=== PATIENT | male | born 1980 | race Caucasian/White ===

== ENCOUNTER 2018-08-06 09:21 | Outpatient (CLI) | payer MEDICAID, SELFPAY ==
--- NOTE | 2018-08-06 15:18 | DI.RAD_ITS ---
SYMPTOM/DIAGNOSIS: M54.12, SIGNS OF C 7 RADICULOPATHY CERVICAL SPINE: There is some straightening of the normal cervical lordosis. There is slight narrowing of the C 5-6 disc space. The left neural foramina are suboptimally profiled. No definite neural foraminal narrowing is seen. IMPRESSION: Mild degenerative changes.
== END 2018-08-06 09:41 ==
PROVIDERS: PCP Family Medicine; Visit Provider Family Medicine
DX: M54.12 Radiculopathy, cervical region (principal); M50.322 Other cervical disc degeneration at C5-C6 level
CPT/HCPCS: 72050

== ENCOUNTER 2018-11-16 13:38 | Emergency (ER) | payer MEDICAID, SELFPAY ==
[2018-11-16 13:44] VITALS: BP 149/94; PULSE 100; RESP 16; TEMP 36.6; O2SAT 100
--- NOTE | 2018-11-16 13:50 | ED.GENADUL_ITS ---
Discharge Plan Disposition Patient Disposition: HOME Condition: Improving Discharge Details Chief Complaint: Chest Pain Clinical Impression: Chest pain, atypical Primary Care Provider: Ivan Benedict ED Provider: Danny Delatorre Home Meds and New Rx's Prescriptions: No Action No Known Home Meds RF: 0 Discharge Instructions Instructions: Chest Pain (ED) Additional Instructions: Please follow instructions given to you by stress test/diagnostic department. Please follow-up with your primary care provider in the next week and return immediately to the emergency department for any new or worsening symptoms, any further concerns. Referrals: Ivan Benedict DO [Primary Care Provider] - 1 week (for reassessment) Discharge Data Discharge Date/Time-TO BE ENTERED AT DEPARTURE: 11/16/18 17:56 Medical Decision Making Patient presenting to the emergency department for chief complaint of chest pain. Patient states that this occurred approximately 25 minutes prior to arrival while he was loading some trash in the back of the vehicle. Patient states it was a substernal pressure with some sensation of irregular beats and some bilateral arm numbness and tingling. Patient states that the pain and discomfort lasted about 5 minutes and then resolved with some tingling lasting about 15 minutes in the upper extremities and then gone. Patient denies any smoking, significant family history for early cardiac does state that mother has had some palpitations in the past the patient is unsure of actual diagnosis. Patient is otherwise healthy. Physical exam is unremarkable and nondiagnostic.Due to some EKG findings in aVR with downsloping ST segment a right-sided EKG was performed. Right-sided EKG does show some signs of ST elevation in V5 V6. Due to this cardiology was paged at 1455 Labs were reviewed and are nondiagnostic along with normal chest x-ray. Spoke with Dr. Hadley who states that EKG pattern is not indicative of STEMI. Initial troponin is negative. Patient reassessed and states that he is pain- free. Given onset of less than 30 minutes prior to arrival to the emergency department plan on doing second troponin which patient is agreeable to Repeat EKG was reviewed with offender job retention specialist due to some interval changes whom stated normal EKG but recommended outpatient stress testing if second troponin remains negative. Second troponin was reviewed and is negative. Patient remains asymptomatic. Patient discharged with diagnosis of atypical chest pain, given referral to follow-up with primary care provider for reassessment preferably next week, and outpatient stress testing ECG Data Attestation: I personally reviewed and interpreted this ECG (s) as follows: Interpretation: EKG shows sinus tachycardia with rate of 105, some elevation/downsloping of aVR otherwise nondiagnostic EKG. Given aVR findings right-sided EKG was performed with a rate of 98, sinus rhythm, nonspecific ST elevation of V5 and V6 along with continued downsloping of aVR noted on right- sided EKG. Both EKGs were reviewed with Dr. Nuñze attending ER physician immediately after being performed. 1643-repeat EKG shows sinus rhythm with rate of 78 and continued RVR downsloping and some peaked T waves. Reviewed this with attending physician Dr. Nuñez along with offender job retention specialist HPI General Mode of arrival: ambulatory . Date/Time Provider Initiated Documentation: 11/16/18 13:44 . Limitations to Documentation: no limitations . Information obtained by: patient . History of Present Illness 38 year old M presents to the emergency department with the chief complaint of chest pain, Quality is described as other (denies current pain), and is localized to the chest. Patient started experiencing this minute(s) (25) and it has been now resolved. No relieving factors improve symptom(s), No exacerbating factors reported . Patient did receive the following treatments prior to arrival, none Related Data Home Medications Medication Instructions Recorded Confirmed Unknown [No Known Home Meds] 11/16/18 11/16/18 Allergies Allergy/AdvReac Type Severity Reaction Status Date / Time No Known Drug Allergies Allergy Verified 11/16/18 13:47 General Stated Complaint: Chest Pain MIRA: 3 Review of Systems Constitutional Denies chills, Denies fever(s) and Denies malaise Cardiovascular Reports as per HPI, Reports chest pain, Reports chest pain with activity, Denies syncope, Reports irregular heart rhythm, Reports palpitations and Denies dyspnea Respiratory Denies cough, Denies hemoptysis and Denies dyspnea Gastrointestinal Denies abdominal pain, Denies nausea and Denies vomiting Musculoskeletal Reports tingling (bilateral arms) Neurologic Denies syncope and Reports tingling (bilateral arms) Psychiatric Denies anxiety Endocrine Denies cold intolerance, Denies heat intolerance and Reports palpitations PFSH Family History Mother No problems noted. Father Raynaud's disease Maternal Grandmother Neoplasm Maternal Grandfather Neoplasm Social History Smoking/Tobacco Use Status: Never Alcohol Intake: current Alcohol Intake frequency: holidays/special occasions only Drug use: Occasionally Substance use type: does not use Seatbelt use: always Working smoke detector in home: Yes Fire extinguisher in home: Yes Carbon monox detector in home: Yes Do you feel safe in your relationship?: Yes Exam Const General: cooperative, healthy appearing, comfortable, no acute distress, not diaphoretic and not ill appearing Nutritional Appearance: average body habitus Orientation: alert, awake and oriented x3 Limitations: mental status not altered Neck Neck: normal visual inspection, full ROM, trachea midline, supple and no anterior neck swelling Thyroid: thyroid normal Carotids: normal carotid upstroke and no bruits Chest Chest: normal inspection of the chest Resp Effort & Inspection: normal respiratory effort and able to speak in complete sentences Auscultation: clear to auscultation bilaterally Cardio Jugular venous pressure: no JVD Palpation: normal PMI Rate: regular rate Rhythm: regular rhythm Heart Sounds: S1 normal, S2 normal, no click, no gallops, no murmurs and no rubs Bruits: no abdominal aortic bruits and no carotid bruits Pulses: radial pulses present bilaterally 2+ GI Inspection: normal to inspection Palpation: soft, no aortic enlargement, no pulsatile masses and nontender Auscultation: normal bowel sounds Skin General skin exam: no rashes or lesions noted Neuro General: alert, awake, oriented x3, tone normal and moves all extremities Course Vital Signs Temperature 36.6 C 11/16/18 13:44 Pulse 100 H 11/16/18 13:44 Respiratory Rate 16 11/16/18 13:44 Blood Pressure 149/94 H 11/16/18 13:44 Pulse Oximetry 100 11/16/18 13:44 Temperature 36.6 C 11/16/18 13:44 Temperature Source Skin 11/16/18 13:44 Pulse 100 H 11/16/18 13:44 Respiratory Rate 16 11/16/18 13:44 Respiratory Effort Non-Labored 11/16/18 13:46 Blood Pressure 149/94 H 11/16/18 13:44 Blood Pressure Position Sitting 11/16/18 13:44 Pulse Oximetry 100 11/16/18 13:44 Oxygen Delivery Method Room Air 11/16/18 13:44 Oxygen Flow Rate 0 11/16/18 13:44
--- NOTE | 2018-11-16 14:02 | DI.RAD_ITS ---
SYMPTOMS/DIAGNOSIS: CHEST PAIN CHEST X-RAY, PA AND LATERAL: No priors. The heart is normal in size. The lungs are clear. The mediastinal structures and pleura appear intact. IMPRESSION: Normal chest.
[2018-11-16 14:07] LABS: Abs Immature Grans 0.04 k/cumm (0.0-0.09); Absolute Basophil Count 0.03 k/cumm (0.0-0.2); Absolute Eosinophil Count 0.09 k/cumm (0.0-0.7); Absolute Lymphocyte Count 2.42 k/cumm (1.2-3.4); Absolute Monocyte Count 0.44 k/cumm (0.11-0.7); Absolute Neutrophil Count 2.81 k/cumm (1.2-6.7); Basophils % 0.5; Eosinophils % 1.5; HCT 41.6 % (40.0-50.0); HGB 13.9 g/dL (13.5-17.5); Immature Grans % 0.7; Lymphocytes % 41.5; Mean Corp. HGB Concentration 33.4 g/dL (32.0-36.0); Mean Corpuscular Hemoglobin 27.1 pg (27.0-33.0); Mean Corpuscular Volume 81.3 fL (80-95); Mean Platelet Volume 10.5 fL (8.0-11.0); Monocytes % 7.5; Neutrophils % 48.3; Platelet Count 231 x1000/uL (130-400); RBC 5.12 m/cumm (4.50-6.00); RBC Distribution Width 14.1 % (11.8-14.1); White Blood Cell Count 5.83 k/cumm (4.4-10.8)
[2018-11-16 14:19] VITALS: RESP 16
[2018-11-16 14:19] LABS: ALT 34 U/L (12-78); AST 31 U/L (15-37); Alkaline Phosphatase 80 U/L (46-116); Anion Gap 11.3 mmol/L (3-11); BUN 14 mg/dL (7-18); Bilirubin, Total 0.5 mg/dL (0.2-1.0); CO2 26.7 mmol/L (21.0-32.0); CREATININE 1.18 mg/dL (0.70-1.30); Calcium 9.1 mg/dL (8.5-10.1); Chloride 100 mmol/L (98-107); Glucose 201 mg/dL (70-100); Magnesium 2.1 mg/dL (1.8-2.4); Potassium 3.7 mmol/L (3.5-5.1); Sodium 138 mmol/L (136-145); Total Protein 7.8 g/dL (6.4-8.2)
[2018-11-16] MEDS: Aspirin 81 MG CHEW 324 MG CH (14:19)
[2018-11-16 14:28] LABS: Troponin I < 0.02 ng/mL (0.00-0.06)
[2018-11-16 14:31] LABS: Lipase 132 U/L (73-393)
[2018-11-16 17:27] LABS: Troponin I < 0.02 ng/mL (0.00-0.06)
--- NOTE | 2018-11-19 08:14 | PDOC.ERCMPRO ---
Care Management Progress Note 11/19-Dutch CLEMENT requested assistance with a PCP (Marichuy) f/u within one week for chest pain. Referral faxed to [facility] this am.
--- NOTE | 2018-11-19 08:39 | CMPROGNOTE_ITS ---
Care Management Progress Note 11/19-Dutch CLEMENT requested assistance with a PCP (Marichuy) f/u within one week for chest pain. Referral faxed to [facility] this am.
== END 2018-11-16 17:56 | disposition home or self-care (01) ==
PROVIDERS: Emergency Provider Nurse Practitioner Family; PCP Family Medicine
DX: R07.89 Other chest pain (principal); R00.0 Tachycardia, unspecified
CPT/HCPCS: 36415; 80053; 83690; 93005; 99285; 71046; 83735; 84484; 85025; 93010

== ENCOUNTER 2018-11-21 00:09 | Outpatient (CLI) | payer MEDICAID, SELFPAY ==
--- NOTE | 2018-11-21 14:00 | ETT_ITS ---
*[facility]* *[facility]* [address] [place] [address] Stress Electrocardiography West protocol Date of study: 11/21/2018 *PATIENT PRESENTATION* Height: 180.3cm (71in) Blood Pressure: Weight: 90.9kg (200lb) BSA: 2.15m^2 Referring physician: Danny Delatorre Ordering physician: Danny Delatorre Impressions: Normal study after maximal exercise. Summary: 1. Treadmill exercise testing was performed using the West protocol. The patient exercised for 18 min 30 sec, to protocol stage 7, to a maximal work rate of 17.6mets. Exercise was terminated due to fatigue. 2. Stress ECG conclusions: The stress ECG is negative. Garcia treadmill score: 19. This score predicts a low risk of cardiac events. 3. Stress: The target heart rate was achieved. The heart rate response to stress is normal. There is a normal resting blood pressure with an appropriate response to stress. The patient experienced no chest pain during stress. Exercise capacity is above normal for age. 4. Baseline ECG: Normal ECG. Indication: R07.89, Appropriate Use Criteria: A (Appropriate). History: REASON FOR TESTING: PATIENT PRESENTED TO THE ER 11/16/18 WITH COMPLAINTS OF SUBSTERNAL PRESSURE/CHEST PAIN (4/10) AFTER LOADING SOME TRASH IN THE BACK OF HIS VEHICLE. THIS PRESSURE/PAIN WAS ASSOCIATED WITH A SENSATION OF IRREGULAR BEATS 'POUNDING' WHICH LASTED APPROXIMATELY 5 MINUTES, AND BILATERAL ARM NUMBNESS AND TINGLING WHICH LASTED APPROXIMATELY 15 MINUTES BEFORE IT RESOLVED. THERE WERE NO EXACERBATING FACTORS. RIGHT SIDED EKG IN ER SHOWED ST ELEVATION IN V5 V6. PATIENT HAD TWO NEGATIVE TROPONINS IN THE ER. PATIENT REPORTS CHEST TIGHTNESS (4/10) TODAY UPON ARRIVAL TO TESTING. SIGNIFICANT PAST MEDICAL HISTORY: NONE. SMOKING STATUS: NEVER. EXERCISE ROUTINE: PATIENT PRACTICES TheraVid TWICE A WEEK FOR TWO HOURS EACH TIME AND ACTIVE WITH DAILY ADL'S. Risk factors: Family history of coronary artery disease. Dyslipidemia. Cholesterol: 211mg/dl. HDL: 54mg/dl. LDL: 138mg/dl. Triglycerides: 83mg/dl. ALLERGIES: NO KNOWN DRUG ALLERGIES. MEDICATIONS: NONE. Protocol: West protocol. Baseline ECG: SINUS RHYTHM. 65 BPM. Normal ECG. Stress protocol: + +---+ + !Stage !HR !BP (mmHg) ! + +---+ + !Baseline supine !65 !130/86 (101)! + +---+ + !Baseline standing !83 !126/90 (102)! + +---+ + !Stage I; 1.7mph, 10degrees; 3 min !94 !130/80 (97) ! + +---+ + !Stage II; 2.5mph, 12degrees; 3 min !107!148/80 (103)! + +---+ + !Stage III; 3.4mph, 14degrees; 3 min!128!152/80 (104)! + +---+ + !Stage IV; 4.2mph, 16degrees; 3 min !140!160/80 (107)! + +---+ + !Peak stress !176! ! + +---+ + !Recovery; 1 min !174!150/80 (103)! + +---+ + !Recovery; 3 min !105!150/78 (102)! + +---+ + !Recovery; 6 min !103!140/78 (99) ! + +---+ + !Recovery; 9 min !103!120/80 (93) ! + +---+ + !Recovery; 15 min !99 ! ! + +---+ + * Stress results: STRESS TEST ENDED IN 18 MINUTES 30 SECONDS DUE TO FATIGUE. PATIENT REPORTED CHEST TIGHTNESS (4/10) PRE EXERCISE AND RESOLVED WITH EXERCISE. NORMAL HEART RATE AND BLOOD PRESSURE RESPONSE TO EXERCISE. MAX HEART RATE: 176 97 % OF TARGET HEART RATE ACHIEVED. MET'S: 17.56 NO ECTOPY. NO ANGINA. NO SIGNIFICANT ST SEGMENT CHANGES. FUNCTIONAL CAPACITY: ABOVE AVERAGE CAPACITY. Maximal heart rate during stress was 176bpm (98% of maximal predicted heart rate). The maximal predicted heart rate was 180bpm. The target heart rate was achieved. The heart rate response to stress is normal. There is a normal resting blood pressure with an appropriate response to stress. The rate-pressure product for the peak heart rate and blood pressure was 16350kk Hg/min. The patient experienced no chest pain during stress. Exercise capacity is above normal for age. Stress ECG: The stress ECG is negative. Garcia treadmill score: 19. This score predicts a low risk of cardiac events. Study data: Ranjit Mahoney MD supervised and was readily available during the procedure. This study was interpreted by [facility]. Study status: Routine. Consent: The risks, benefits, and alternatives to the procedure were explained to the patient and informed consent was obtained. Procedure: Initial setup. A baseline ECG was recorded. Surface ECG leads and manual cuff blood pressure measurements were monitored. Heart sounds: Normal. Lung sounds: Normal. Treadmill exercise testing was performed using the West protocol. The patient exercised for 18 min 30 sec, to protocol stage 7, to a maximal work rate of 17.6mets. Exercise was terminated due to fatigue. Study completion: The patient tolerated the procedure well and was discharged from the lab. Discharge: The patient left the laboratory in stable condition. Birthdate: Patient birthdate: 1980. Sex: Gender: male. Study date: Study date: 11/21/2018. Study time: 00:01 AM. Signature Documentation: The Stress ECG portion of this study was interpreted by Ranjit Mahoney MD. Electronically signed by Ranjit Mahoney 11/22/2018 08:48
== END 2018-11-21 00:29 ==
PROVIDERS: PCP Family Medicine; Visit Provider Nurse Practitioner Family
DX: R07.89 Other chest pain (principal); R94.31 Abnormal electrocardiogram [ECG] [EKG]; Z82.49 Family history of ischemic heart disease and other diseases of the circulatory system
CPT/HCPCS: 93017

== ENCOUNTER 2019-11-12 15:59 | Outpatient (CLI) | payer MEDICAID, SELFPAY ==
--- NOTE | 2019-11-12 16:00 | DI.RAD_ITS ---
EXAM: XR FINGER RT LITTLE INDICATION: Likely flexor tendon injury. r/o avulsion S66.801A INJURY. COMPARISON: No exams were available for comparison TECHNIQUE: 2D digital imaging was performed. FINDINGS: No fracture or dislocation is seen. There are minimal degenerative changes of the interphalangeal rancho ints the fingers. IMPRESSION: No evidence of avulsion fracture. DATA REPOSITORY: RADIATION DOSE DELIVERED:
== END 2019-11-12 16:19 ==
PROVIDERS: PCP Family Medicine; Visit Provider Family Medicine
DX: S66.801A Unspecified injury of other specified muscles, fascia and tendons at wrist and hand level, right hand, initial encounter (principal)
CPT/HCPCS: 73140

== ENCOUNTER 2020-12-31 15:52 | Outpatient (REF) | payer MEDICAID, SELFPAY ==
[2021-01-04 14:51] LABS: Chlamydia Result Negative (Negative); GC Result Negative (Negative)
== END 2020-12-31 15:53 | disposition home or self-care (01) ==
LOC: LBN 15:52
PROVIDERS: PCP Family Medicine; Visit Provider Family Medicine
DX: N50.811 Right testicular pain (principal)
CPT/HCPCS: 87491; 87591

== ENCOUNTER 2021-01-21 08:21 | Outpatient (CLI) | payer MEDICAID, SELFPAY ==
[2021-01-21 10:03] LABS: Bilirubin Negative (Negative); Blood Negative (Negative); Clarity Clear (Clear); Glucose Negative (Negative); Ketones Negative (Negative); Leukocyte Esterase Negative (Negative); Nitrite Negative (Negative); Specific Gravity 1.015 (1.005-1.025); Urobilinogen 0.2 EU/dL (Up TO 0.2)
== END 2021-01-21 08:22 | disposition home or self-care (01) ==
LOC: LBO 08:26
PROVIDERS: PCP Family Medicine; Visit Provider Family Medicine
DX: R30.0 Dysuria (principal)
CPT/HCPCS: 81003; 87086

== ENCOUNTER 2021-01-27 01:20 | Outpatient (CLI) | payer MEDICAID, SELFPAY ==
--- NOTE | 2021-01-27 07:00 | DI.US_ITS ---
Exam(s) US RENAL EXAM: US RENAL CLINICAL HISTORY: Chronic L flank discomfort,PAIN,R10.9 TECHNIQUE: Ultrasound of both kidneys performed using standard protocol. COMPARISON: No exams were available for comparison FINDINGS: RIGHT KIDNEY: Measures 11.5 cm in length. No cysts evident. Normal cortical thickness and corticomedullary differen tiation .No solid masses No intrarenal calculi nor hydronephrosis. LEFT KIDNEY: Measures 0.3 cm in length. No cysts evident. Normal cortical thickness and corticomedullary differen tiaion. No solids masses. No intrarenal calculi nor hydonephrosis. URINARY BLADDER: Prevoid volume is 830 cc Postvoid volume is 28 cc Prostate size upper normal. Prostate gland measures 3.9 cm wide by 2.2 cm craniocaudal No evidence of bladder mass nor diverticuli. Ureterovesical jets: Both identified and appear symmetrical IMPRESSION: 1. No significant ultrasound findings in the kidneys. 2. No obvious focal abnormality in the urinary bladder. DATA REPOSITORY:
== END 2021-01-27 01:40 ==
PROVIDERS: PCP Family Medicine; Visit Provider Family Medicine
DX: R10.32 Left lower quadrant pain (principal)
CPT/HCPCS: 76770

== ENCOUNTER 2022-01-14 02:47 | Outpatient (CLI) | payer MEDICAID, SELFPAY ==
[2022-01-14 09:24] LABS: Calculated LDL 241 mg/dL (<100); Cholesterol 315 mg/dL (<200); HDL Cholesterol 56 mg/dL (40-60); Triglyceride 90 mg/dL (<150)
[2022-01-15 09:21] LABS: HIV-1/2 Ag & Ab Screen Negative (Negative)
[2022-01-17 12:04] LABS: Hepatitis C Ab w Rflx HCV PCR Negative (Negative)
== END 2022-01-14 02:48 | disposition home or self-care (01) ==
LOC: LBO 02:47
PROVIDERS: PCP Family Medicine; Visit Provider Family Medicine
DX: E78.5 Hyperlipidemia, unspecified (principal); Z11.4 Encounter for screening for human immunodeficiency virus [HIV]; Z11.59 Encounter for screening for other viral diseases
CPT/HCPCS: 36415; 80061; 86803; 87389

== ENCOUNTER 2023-05-18 11:41 | Outpatient (CLI) | payer MEDICAID, SELFPAY ==
[2023-05-18 12:24] LABS: Calculated LDL 204 mg/dL (<100); Cholesterol 289 mg/dL (<200); HDL Cholesterol 55 mg/dL (40-60); Triglyceride 154 mg/dL (<150)
== END 2023-05-18 11:42 | disposition home or self-care (01) ==
LOC: LBO 11:42
PROVIDERS: PCP Family Medicine; Visit Provider Family Medicine
DX: E78.5 Hyperlipidemia, unspecified (principal)
CPT/HCPCS: 36415; 80061

== ENCOUNTER 2023-08-18 03:21 | Outpatient (CLI) | payer MEDICAID, SELFPAY ==
[2023-08-18 08:04] LABS: Calculated LDL 97 mg/dL (<100); Cholesterol 165 mg/dL (<200); HDL Cholesterol 45 mg/dL (40-60); Triglyceride 118 mg/dL (<150)
== END 2023-08-18 03:22 | disposition home or self-care (01) ==
PROVIDERS: PCP Family Medicine; Visit Provider Family Medicine
DX: E78.5 Hyperlipidemia, unspecified (principal)
CPT/HCPCS: 36415; 80061

== ENCOUNTER 2023-12-06 04:58 | Outpatient (CLI) | payer MEDICAID, SELFPAY ==
[2023-12-06 07:59] LABS: Abs Immature Grans 0.04 10^3/uL (0.0-0.06); Absolute Basophil Count 0.07 10^3/uL (0.0-0.2); Absolute Eosinophil Count 0.17 10^3/uL (0.0-0.7); Absolute Lymphocyte Count 2.38 10^3/uL (1.2-3.4); Absolute Monocyte Count 0.56 10^3/uL (0.1-0.8); Absolute Neutrophil Count 3.01 10^3/uL (1.2-6.7); Basophils % 1.1; Eosinophils % 2.7; HCT 41.1 % (40.0-50.0); HGB 13.5 g/dL (13.5-17.5); Immature Grans % 0.6; Lymphocytes % 38.2; MCHC 32.8 % (32.0-36.0); MCV 85 fL (80-95); MPV 10.3 fL (8.0-11.0); Neutrophils % 48.4; Platelet Count 228 10^3/uL (130-400); RBC 4.82 10^6/uL (4.36-5.78); RDW-SD 40.4 fL; WBC 6.23 10^3/uL (4.4-10.8)
[2023-12-06 08:19] LABS: ESR 1 mm/hr (0-15)
== END 2023-12-06 04:59 | disposition home or self-care (01) ==
LOC: LBO 04:58
PROVIDERS: PCP Family Medicine; Referring Provider Nurse Practitioner; Visit Provider Nurse Practitioner
DX: R59.1 Generalized enlarged lymph nodes (principal); J45.909 Unspecified asthma, uncomplicated
CPT/HCPCS: 36415; 85652; 85025

== ENCOUNTER → 2023-12-08 01:02 | Outpatient (CLI) | payer MEDICAID, SELFPAY ==
--- NOTE | 2023-12-08 07:00 | DI.US_ITS ---
Exam(s) US SOFT TISSUE HEAD OR NECK EXAM: US SOFT TISSUE HEAD OR NECK CLINICAL HISTORY: left tonsilar node enlarged for 8 weeks,LYMPHADENOPATHY,R59.1. TECHNIQUE: Ultrasound was performed using standard protocol. COMPARISON: No exams were available for comparison FINDINGS: Sonographic assessment utilizing grayscale and color Doppler imaging was performed and targeted to th e area of clinical concern in the region of the left submandibular gland. No evidence of mass. Submandibular gland appears homogeneous. 1.2 x 0.4 x 1.4 centimeter normal katie earing lymph node in the vicinity. IMPRESSION: No evidence of adenopathy. Normal size and appearance lymph node near left submandibular gland. DATA REPOSITORY:
== END ==
PROVIDERS: PCP Family Medicine; Visit Provider Nurse Practitioner
DX: R59.0 Localized enlarged lymph nodes (principal); R22.1 Localized swelling, mass and lump, neck; J35.1 Hypertrophy of tonsils
CPT/HCPCS: 76536

== ENCOUNTER 2024-05-27 14:53 | Outpatient (CLI) | payer MEDICAID, SELFPAY ==
--- NOTE | 2024-05-27 14:45 | DI.RAD_ITS ---
Exam(s) XR LUMBAR SPINE COMPLETE EXAM: XR LUMBAR SPINE COMPLETE CLINICAL HISTORY: Likely mechanical low back pain, M54.50. TECHNIQUE: 2D digital imaging was performed. Five views. COMPARISON: No exams were available for comparison FINDINGS: BONES: No acute fracture. Bilateral L5 pars defects. Vertebral body heights are maintained. facet hypertrophy identified . Calcification of the left lumbosacral ligament. DISKS: Severe narrowing of the L5-S1 disc space. The remaining intervertebral disc spaces are mainta ined. ALIGNMENT: Mild L5 spondylolisthesis. No scoliosis. SOFT TISSUE: Normal. IMPRESSION: L5 spondylolysis and mild L5-S1 spondylolisthesis. Severe narrowing of the L5-S1 disc space. DATA REPOSITORY: RADIATION DOSE DELIVERED:
== END 2024-05-27 15:13 ==
PROVIDERS: PCP Family Medicine; Visit Provider Family Medicine
DX: M47.27 Other spondylosis with radiculopathy, lumbosacral region (principal)
CPT/HCPCS: 72110